=== PATIENT | female | born 1980 | race American Indian/Alaskan Native ===

== ENCOUNTER 2016-11-01 19:23 | Emergency (ER) | payer MEDICAID, OTHER ==
[2016-11-01 20:40] VITALS: BP 131/74
[2016-11-01 21:22] LABS: Eosinophils % (Auto) 2.3 % (0.0-4.3); Hematocrit 34.6 % (30.3-42.9); Hemoglobin 11.3 gm/dl (10.1-14.3); Mean Corpuscular HGB Conc 33 % (30-34); Mean Corpuscular Hemoglobin 29 pg (28-32); Mean Corpuscular Volume 89 fl (79-97); Platelet Count 389 K/mm3 (140-440); Red Blood Count 3.89 M/mm3 (3.65-5.03); White Blood Count 6.7 K/mm3 (4.5-11.0)
[2016-11-01 21:44] LABS: Alanine Aminotransferase 8 units/L (7-56); Albumin 3.9 g/dL (3.9-5); Albumin/Globulin Ratio 1.4 %; Alkaline Phosphatase 81 units/L (35-129); Anion Gap 15 mmol/L; Bilirubin,Total < 0.2 mg/dL (0.1-1.2); Blood Urea Nitrogen 14 mg/dL (7-17); Calcium 9.1 mg/dL (8.4-10.2); Carbon Dioxide 27 mmol/L (22-30); Chloride 100.9 mmol/L (98-107); Glucose 83 mg/dL (65-100); Lipase 27 units/L (13-60); Potassium 4.1 mmol/L (3.6-5.0); Sodium 139 mmol/L (137-145); Total Protein 6.6 g/dL (6.3-8.2)
[2016-11-01 21:48] LABS: Bilirubin,Urine NEG (Negative); Blood,Urine NEG (Negative); Ketones,Urine TR mg/dL (Negative); Leukocyte Esterase,Urine NEG (Negative); Mucus,Urine 3+ /HPF; Nitrite,Urine NEG (Negative); Protein,Urine <15 mg/dL mg/dL (Negative)
--- NOTE | 2016-11-02 07:01 | ED Elopement Review ---
ED Pt Elopement review - Results review Lab results: Laboratory Tests 11/01/16 11/01/16 11/01/16 21:05 21:05 21:28 WBC 6.7 RBC 3.89 Hgb 11.3 Hct 34.6 MCV 89 MCH 29 MCHC 33 RDW 17.0 H Plt Count 389 Lymph % (Auto) 52.6 H [place] % (Auto) 7.3 Eos % (Auto) 2.3 Baso % (Auto) 1.0 Lymph # 3.5 [place] # 0.5 Eos # 0.2 Baso # 0.1 Seg Neutrophils % 36.8 L Seg Neutrophils # 2.5 Sodium 139 Potassium 4.1 Chloride 100.9 Carbon Dioxide 27 Anion Gap 15 BUN 14 Creatinine 0.8 Estimated GFR > 60 BUN/Creatinine Ratio 17.50 Glucose 83 Calcium 9.1 Total Bilirubin < 0.2 AST 15 ALT 8 Alkaline Phosphatase 81 Total Protein 6.6 Albumin 3.9 Albumin/Globulin Ratio 1.4 Lipase 27 Urine Color Yellow Urine Turbidity Clear Urine pH 6.0 Ur Specific [place] 1.025 Urine Protein <15 mg/dl Urine Glucose (UA) Neg Urine Ketones Tr Urine Blood Neg Urine Nitrite Neg Ur Reducing Substances Not Reportable Urine Bilirubin Neg Urine Ictotest Not Reportable Urine Urobilinogen 2.0 Ur Leukocyte Esterase Neg Urine WBC (Auto) 1.0 Urine RBC (Auto) 2.0 U Epithel Cells (Auto) 1.0 Calcium Oxalate Crystal 1+ Urine Mucus 3+ Urine HCG, Qual Negative - Call Back decision Pt Call Back Decision: No action required
== END 2016-11-02 01:30 | disposition left against medical advice (07) ==
LOC: ED 19:23
DX: R10.9 Unspecified abdominal pain (principal); Z53.21 Procedure and treatment not carried out due to patient leaving prior to being seen by health care provider
CPT/HCPCS: 36415; 80053; 81001; 81025; 83690; 85025

== ENCOUNTER 2017-11-23 18:05 | Emergency (ER) | payer OTHER ==
[2017-11-23 18:53] LABS: BUN/Creatinine Ratio 13; Blood Urea Nitrogen 9 mg/dL (7-17); Calcium 8.3 mg/dL (8.4-10.2); Hemolysis Index 19
[2017-11-23 18:54] LABS: Hematocrit 31.4 % (30.3-42.9); Hemoglobin 10.4 gm/dl (10.1-14.3); Mean Corpuscular HGB Conc 33 % (30-34); Mean Corpuscular Hemoglobin 28 pg (28-32); Mean Corpuscular Volume 85 fl (79-97); Platelet Count 379 K/mm3 (140-440); Red Blood Count 3.71 M/mm3 (3.65-5.03); Red Cell Distribution Width 18.3 % (13.2-15.2)
[2017-11-23] MEDS ORDERED: MOTRIN PO ONE (21:43)
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
[2017-11-23 21:52] LABS: Bacteria,Urine 1+ /HPF (Negative); Bilirubin,Urine NEG (Negative); Blood,Urine LG (Negative); Color,Urine Yellow (Yellow); Mucus,Urine 3+ /HPF
[2017-11-23 21:56] LABS: RBC,Urine > 182.0 /HPF (0.0-6.0)
[2017-11-23 22:13] VITALS: BP 115/77
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
== END 2017-11-23 22:02 | disposition home or self-care (01) ==
LOC: ED 18:05
DX: S20.212A Contusion of left front wall of thorax, initial encounter (principal); M54.5 Low back pain; I10 Essential (primary) hypertension; F17.200 Nicotine dependence, unspecified, uncomplicated; Z91.048 Other nonmedicinal substance allergy status; Z88.8 Allergy status to other drugs, medicaments and biological substances; V49.9XXA Car occupant (driver) (passenger) injured in unspecified traffic accident, initial encounter; Y93.89 Activity, other specified; Y92.89 Other specified places as the place of occurrence of the external cause; Y99.8 Other external cause status
CPT/HCPCS: 36415; 71046; 80048; 81001; 84703; 85027; 93005; 93010; 99284

== ENCOUNTER 2018-02-02 15:23 | Emergency (ER) | payer SELFPAY ==
[2018-02-02] MEDS ORDERED: NACL 0.9% 1000 ML 1,000 ML IV ONE (21:25)
--- NOTE | 2018-02-02 21:31 | Emergency Department Report ---
HPI - General Chief Complaint: Abdominal Pain Time Seen by Provider: 02/02/18 21:00 - HPI HPI: 37-year-old female presents to the emergency department with complaint of a few days of generalized abdominal bloating, abdominal cramping, muscle spasms and she complains of constipation for the past 3 weeks. She does have some very small bowel movements but they are not satiating. She has not tried any laxatives, stool softeners or any treatment prior to presentation. No recent travel or sick contacts at home. She denies any past medical history other than hypertension. She does not have a primary care physician. She denies any vaginal bleeding, dysuria, vaginal discharge, fever but does have some nausea with one or 2 episodes of vomiting. ED Past Medical Hx - Past Medical History Previous Medical History?: Yes Hx Hypertension: Yes Hx Congestive Heart Failure: No Hx Diabetes: No Hx Deep Vein Thrombosis: No Hx Renal Disease: No Hx Sickle Cell Disease: No Hx Seizures: No Hx Asthma: No Hx COPD: No Hx HIV: No - Surgical History Past Surgical History?: Yes Additional Surgical History: X 3. hernia repair - Social History Smoking Status: Current Every Day Smoker Substance Use Type: Alcohol, Marijuana - Medications Home Medications: Home Medications Medication Instructions Recorded Confirmed Last Taken Type Pnv95/Ferrous Fumarate/FA 1 each PO QDAY #30 tablet 10/02/14 04/25/15 04/19/15 09:00 Rx [ Vitamins] 1 tab Docusate Sodium [Colace CAP] 100 mg PO BID PRN #60 capsule 04/21/15 04/25/15 Unknown Rx Ibuprofen [Motrin 800 MG tab] 800 mg PO Q8HR PRN #30 tablet 04/21/15 04/25/15 Unknown Rx Lidocain2.5%/Prilocai2.5% [Emla] 5 gm TP ONCE #1 tube 04/21/15 04/25/15 Unknown Rx Cephalexin [Keflex] 500 mg PO Q6HR #28 capsule 04/25/15 Unknown Rx Cyclobenzaprine [Flexeril] 10 mg PO TID PRN #15 tablet 11/23/17 Unknown Rx Ibuprofen 400 mg PO Q6H 4 Days #16 tablet 11/23/17 Unknown Rx oxyCODONE /ACETAMINOPHEN [Percocet 1 tab PO Q6HR PRN #10 tablet 11/23/17 Unknown Rx 5/325] HYDROcodone/APAP 5-325 [[place] 1 each PO Q6HR PRN #16 tablet 02/03/18 Unknown Rx 5/325] ED Review of Systems ROS: Stated complaint: ABD PAINS Other details as noted in HPI Comment: All other systems reviewed and negative Constitutional: denies: chills, fever Eyes: denies: eye pain, eye discharge, vision change ENT: denies: ear pain, throat pain Respiratory: denies: cough, shortness of breath, wheezing Cardiovascular: denies: chest pain, palpitations Gastrointestinal: abdominal pain, nausea, vomiting, constipation Genitourinary: denies: urgency, dysuria, discharge Musculoskeletal: denies: back pain, joint swelling, arthralgia Skin: denies: rash, lesions Neurological: denies: headache, weakness, paresthesias Physical Exam - Physical Exam Vital Signs: Vital Signs 02/02/18 15:42 Temperature 98.6 F Pulse Rate 81 Respiratory 18 Rate Blood Pressure 109/65 O2 Sat by Pulse 98 Oximetry Physical Exam: GENERAL: The patient is well-developed well-nourished. HENT: Normocephalic. Atraumatic. Patient has moist mucous membranes. EYES: Extraocular motions are intact. Pupils equal reactive to light bilaterally. NECK: Supple. Trachea is midline. CHEST/LUNGS: Clear to auscultation. There is no respiratory distress noted. HEART/CARDIOVASCULAR: Regular. There is no tachycardia. There is no murmur. ABDOMEN: Abdomen is soft. There is some lower abdominal and/or pelvic tenderness to palpation. No guarding. Patient has normal bowel sounds. There is no abdominal distention. SKIN: Skin is warm and dry. NEURO: The patient is awake, alert, and oriented. The patient is cooperative. The patient has no focal neurologic deficits. The patient has normal speech. MUSCULOSKELETAL: There is no tenderness or deformity. There is no limitation range of motion. There is no evidence of acute injury. ED Course Vital Signs 02/02/18 15:42 Temperature 98.6 F Pulse Rate 81 Respiratory 18 Rate Blood Pressure 109/65 O2 Sat by Pulse 98 Oximetry - Consultations Consultation #1: I spoke with the [employer] communications project lead, Dr Deann Toth, regarding the patient's presentation, labs, and most importantly the CT and ultrasound results. Dr. Toth ordered some special send out labs to evaluate the patient for ovarian tumor markers. Dr. Toth will be happy to see the patient in her office on Monday. She feels that the ultrasound reading of probable right ovarian blood flow is enough for safe disposition but she reiterates that the patient will need close follow-up. 02/03/18 06:26 ED Medical Decision Making - Lab Data Result diagrams: 02/02/18 21:46 02/02/18 21:46 - Radiology Data Radiology results: report reviewed, image reviewed interpreted by me: Abdominal x-ray shows nonspecific nonobstructive bowel gas. There are a few air -fluid levels. Transvaginal ultrasound/pelvic ultrasound shows a large complex masslike area about the right adnexa, uncertain whether this includes the right ovary. Difficult to evaluate, there is a possible flow about the right adnexa. Could represent complex and/or hemorrhagic cyst. CT scan of the abdomen and pelvis with IV contrast shows an in homogenous density large lesion posterior to the uterus most likely represents an ovarian mass. Differential in diagnoses includes unopacified loops of bowel. Mild degree of ascites. - Medical Decision Making Patient came in originally with concern for possible constipation and some abdominal discomfort. On x-ray she did not appear to have any significant stool burden so I decided to do a CT scan of the abdomen and pelvis with IV contrast. This came back showing a large pelvic mass that appeared right adnexal and possibly ovarian. To further evaluate this, I then ordered a transvaginal ultrasound with Doppler. Once again showed a large right adnexal mass. It was read by radiology as a difficult interpretation of Doppler flow but probable flow to the right ovary. For this reason I wanted to make sure to speak with the [employer] service. They are aware of this reading and feel that the patient can be discharged home from the ER today but she will need very close follow-up and they have agreed to see the patient in the office on Monday. Tumor markers have been ordered and sent out. The patient has been given all labs and imaging results as well as the plan for follow-up on Monday and she understands and agrees to the plan. She will return to the ER with any worsening of her symptoms or any acute distress. - Differential Diagnosis malignancy, ovarian cyst, constipation, colitis Critical Care Time: No Critical care attestation.: If time is entered above; I have spent that time in minutes in the direct care of this critically ill patient, excluding procedure time. ED Disposition Clinical Impression: Adnexal mass, Pelvic mass Disposition: TO HOME OR SELFCARE Is pt being admited?: No Condition: Stable Additional Instructions: You were seen today and found to have a large right adnexal/pelvic mass. Please follow-up with Dr. Toth on Monday for the results of the extra lab tests that were drawn and for further evaluation. Return to the emergency department with any worsening of your symptoms or any acute distress. You have been prescribed a medication that is sedating and therefore should not be taken prior to driving, working, and responsible for children and in no way should be mixed with alcohol of any quantity. Prescriptions: HYDROcodone/APAP 5-325 [[place] 5/325] 1 each PO Q6HR PRN #16 tablet PRN Reason: Pain Referrals: DEANN TOTH MD [Staff Physician] - 02/06/18 Forms: Work/School Release Form(ED) Time of Disposition: 06:21
[2018-02-02 21:58] LABS: Basophils % (Auto) 0.4 % (0.0-1.8); Eosinophils # (Auto) 0.1 K/mm3 (0.0-0.4); Eosinophils % (Auto) 1.6 % (0.0-4.3); Hematocrit 29.4 % (30.3-42.9); Hemoglobin 9.5 gm/dl (10.1-14.3); Lymphocytes # (Auto) 2.4 K/mm3 (1.2-5.4); Lymphocytes % (Auto) 35.6 % (13.4-35.0); Mean Corpuscular HGB Conc 32 % (30-34); Mean Corpuscular Hemoglobin 27 pg (28-32); Mean Corpuscular Volume 83 fl (79-97); Monocytes # (Auto) 0.5 K/mm3 (0.0-0.8); Monocytes % (Auto) 6.8 % (0.0-7.3); Platelet Count 455 K/mm3 (140-440); Red Blood Count 3.56 M/mm3 (3.65-5.03)
[2018-02-02 22:07] LABS: Bilirubin,Urine NEG (Negative); Blood,Urine NEG (Negative); Color,Urine Yellow (Yellow); Mucus,Urine 3+ /HPF; Protein,Urine <15 mg/dL mg/dL (Negative)
[2018-02-02 22:11] LABS: Alanine Aminotransferase 7 units/L (7-56); Albumin 4.1 g/dL (3.9-5); BUN/Creatinine Ratio 13; Blood Urea Nitrogen 8 mg/dL (7-17); Calcium 8.8 mg/dL (8.4-10.2); Hemolysis Index 5; Lipase 29 units/L (13-60)
--- NOTE | 2018-02-03 00:17 | Cat Scan Report ---
FINAL REPORT PROCEDURE: CT ABDOMEN PELVIS WO CON TECHNIQUE: Computerized axial tomography of the abdomen and pelvis was performed without intravenous contrast. This study is performed without intravascular contrast material and its sensitivity for abdominal and pelvic pathology, including neoplasms, inflammation, abscess, free fluid, thrombosis, arterial dissection and infarction, is reduced compared with a contrast enhanced study. HISTORY: abd pain COMPARISON: No prior studies are available for comparison. FINDINGS: Liver, spleen, pancreas and adrenal glands are within normal limits. Bilateral kidneys demonstrate normal density without calculi or hydronephrosis. Urinary bladder is partially filled with normal outlines. Aorta is of normal caliber. There is no free air in the peritoneal cavity. Gallbladder is unremarkable. Small bowel loops are within normal limits. A large inhomogeneous density lesion is identified in the pelvis posterior to the uterus measuring about 11.5 x 6.1 x 9.2 centimeters. Uterus appears displaced anteriorly. There is mild degree of free fluid in the peritoneal cavity. Appendix is normal. IMPRESSION: An inhomogeneous density large lesion posterior to the uterus most likely represents an ovarian mass. Differential diagnosis includes unopacified loops of bowel. A post contrast CT is recommended for further evaluation. Mild degree ascites.
--- NOTE | 2018-02-03 00:17 | XRay Report ---
FINAL REPORT PROCEDURE: XR ABDOMEN 2V TECHNIQUE: Abdominal series, including supine and upright AP views. HISTORY: Abd pain COMPARISON: No prior studies are available for comparison. FINDINGS: Bowel gas pattern:Intestinal gas is distributed in nondistended small and large bowel loops peer. Masses or calcifications:Homogeneous density is noted in pelvis with absence of intestinal gas.. Bony structures:No significant abnormality . Pneumoperitoneum:None . Other:No significant findings . IMPRESSION: Nonspecific intestinal gas pattern. A pelvic mass cannot be excluded. Ultrasound or CT scan are recommended..
[2018-02-03 06:01] VITALS: BP 124/78
--- NOTE | 2018-02-03 09:00 | Ultrasound Report ---
FINAL REPORT PROCEDURE: US PELVIS TECHNIQUE: Real-time transabdominal sonography in multiple planes of the pelvis was performed. The pelvic structures, especially the ovaries were not optimally visualized. Transvaginal sonography was then performed to better evaluate the structures and/or abnormalities described below with image documentation. Limited Doppler evaluation of the ovary/adnexa. CPT 04204 and 33122 HISTORY: Ovarian mass. Pelvic pain. COMPARISON: No prior studies are available for comparison. FINDINGS: UTERUS Size: 10.6 x 4.5 x 6.7 cm. Endometrial thickness: 8.1 mm. Orientation: anteverted. Cervix: Normal. Fibroids/masses: None. RIGHT Ovary: Uncertain whether represents the right ovary or mass, large complex 9.7 x 6.5 x 9.2 cm lesion in this region. Appearance: Difficult to evaluate, but there is probable flow about the right adnexa. LEFT Ovary: 4.6 x 4.2 x 3.3 cm. Appearance: Normal flow. Pelvic fluid: Small amount of fluid in the cul-de-sac. Other: None. IMPRESSION: Large complex masslike area about the right adnexa, uncertain whether this includes the right ovary. Difficult to evaluate, there is possible flow about the right adnexa. Could represent complex and/or hemorrhagic cyst. Consider further evaluation including contrasted CT scan of the abdomen and pelvis or MRI if there is concern for mass lesion (and if patient has no contraindication MRI).
--- NOTE | 2018-02-03 09:00 | Ultrasound Report ---
FINAL REPORT PROCEDURE: US PELVIS TECHNIQUE: Real-time transabdominal sonography in multiple planes of the pelvis was performed. The pelvic structures, especially the ovaries were not optimally visualized. Transvaginal sonography was then performed to better evaluate the structures and/or abnormalities described below with image documentation. Limited Doppler evaluation of the ovary/adnexa. CPT 54752 and 23416 HISTORY: Ovarian mass. Pelvic pain. COMPARISON: CT scan of the abdomen and pelvis dated 02/02/2018. FINDINGS: UTERUS Size: 10.6 x 4.5 x 6.7 cm. Endometrial thickness: 8.1 mm. Orientation: anteverted. Cervix: Normal. Fibroids/masses: None. RIGHT Ovary: Uncertain whether represents the right ovary or mass, large complex 9.7 x 6.5 x 9.2 cm lesion in this region. Appearance: Difficult to evaluate, but there is probable flow about the right adnexa. LEFT Ovary: 4.6 x 4.2 x 3.3 cm. Appearance: Normal flow. Pelvic fluid: Small amount of fluid in the cul-de-sac. Other: None. IMPRESSION: Large complex masslike area about the right adnexa, uncertain whether this includes the right ovary. Difficult to evaluate, there is possible flow about the right adnexa. Could represent complex and/or hemorrhagic cyst. Consider further evaluation including contrasted CT scan of the abdomen and pelvis or MRI if there is concern for mass lesion (and if patient has no contraindication MRI).
== END 2018-02-03 06:48 | disposition home or self-care (01) ==
LOC: ED 15:23
DX: R19.00 Intra-abdominal and pelvic swelling, mass and lump, unspecified site (principal); I10 Essential (primary) hypertension; F17.200 Nicotine dependence, unspecified, uncomplicated; F12.10 Cannabis abuse, uncomplicated
CPT/HCPCS: 36415; 74019; 74176; 76830; 80053; 81001; 82378; 83690; 84703; 85025; 86301; 86304; 93975

== ENCOUNTER 2018-03-28 14:19 | Emergency (ER) | payer SELFPAY ==
[2018-03-28] MEDS ORDERED: NACL 0.9% 1000 ML 1,000 ML IV ONE (14:37)
[2018-03-28 15:25] LABS: Basophils % (Auto) 0.6 % (0.0-1.8); Eosinophils # (Auto) 0.1 K/mm3 (0.0-0.4); Eosinophils % (Auto) 1.7 % (0.0-4.3); Hematocrit 27.2 % (30.3-42.9); Hemoglobin 8.9 gm/dl (10.1-14.3); Lymphocytes # (Auto) 1.4 K/mm3 (1.2-5.4); Lymphocytes % (Auto) 25.8 % (13.4-35.0); Mean Corpuscular HGB Conc 33 % (30-34); Mean Corpuscular Hemoglobin 26 pg (28-32); Mean Corpuscular Volume 81 fl (79-97); Monocytes # (Auto) 0.4 K/mm3 (0.0-0.8); Monocytes % (Auto) 7.9 % (0.0-7.3); Platelet Count 578 K/mm3 (140-440); Red Blood Count 3.37 M/mm3 (3.65-5.03); Red Cell Distribution Width 18.5 % (13.2-15.2)
[2018-03-28 15:32] LABS: Alanine Aminotransferase 6 units/L (7-56); Albumin 4.4 g/dL (3.9-5); BUN/Creatinine Ratio 15; Blood Urea Nitrogen 9 mg/dL (7-17); Calcium 9.8 mg/dL (8.4-10.2); Hemolysis Index 3
[2018-03-28] MEDS ORDERED: DILAUDID IV ONE (17:30)
[2018-03-28] MEDS ORDERED: ZOFRAN IV ONE (17:31)
--- NOTE | 2018-03-28 17:32 | Emergency Department Report ---
ED Abdominal Pain HPI - General Chief Complaint: Abdominal Pain Stated Complaint: RT OVARIAN CYST Time Seen by Provider: 03/28/18 17:19 Source: patient, RN notes reviewed, old records reviewed Mode of arrival: Ambulatory Limitations: No Limitations - History of Present Illness Initial Comments: This is a 37-year-old female who is unknown to this provider previously. She is currently seeing jet ski mechanic, Dr. Donal Arias. Patient has had imaging at this hospital in the past few months including CAT scan of the abdomen and pelvis as well as pelvic ultrasound, both of which suggested a probable right- sided ovarian mass. Patient is supposed to have follow-up with outpatient gynecology for right-sided oophorectomy, possible cystectomy, for presumed malignant ovarian lesion. Patient has been having issues following up secondary to financial issues. Patient was seen by financial director today prior to my evaluation, and they informed nursing staff and patient that she has qualified for emergency Medicaid. The patient presents today with acute on chronic abdominal pain. The abdominal pain is in the bilateral lower quadrants it is sharp and burning in nature, increases with palpation and decreases with rest. She endorses constipation which improves with magnesium sulfate. She had a bowel movement yesterday. She 's not had a bowel movement today. She denies urinary symptoms. SHe also reports feeling like the skin in her lower abdominal region feels "hard." MD Complaint: abdominal pain -: Gradual Location: LLQ, RLQ, suprapubic Radiation: none Severity: moderate Quality: cramping Consistency: constant (for weeks) Improves With: bowel movement, medication, rest Worsens With: movement Associated Symptoms: nausea, vomiting, constipation. denies: diarrhea, fever, chills, dysuria, hematemesis, hematochezia, melena, hematuria, anorexia, syncope - Related Data Previous Rx's Medication Instructions Recorded Last Taken Type Pnv95/Ferrous Fumarate/FA 1 each PO QDAY #30 tablet 10/02/14 04/19/15 09:00 Rx [ Vitamins] 1 tab Docusate Sodium [Colace CAP] 100 mg PO BID PRN #60 capsule 04/21/15 Unknown Rx Ibuprofen [Motrin 800 MG tab] 800 mg PO Q8HR PRN #30 tablet 04/21/15 Unknown Rx Lidocain2.5%/Prilocai2.5% [Emla] 5 gm TP ONCE #1 tube 04/21/15 Unknown Rx Cephalexin [Keflex] 500 mg PO Q6HR #28 capsule 04/25/15 Unknown Rx Cyclobenzaprine [Flexeril] 10 mg PO TID PRN #15 tablet 11/23/17 Unknown Rx Ibuprofen 400 mg PO Q6H 4 Days #16 tablet 11/23/17 Unknown Rx oxyCODONE /ACETAMINOPHEN [Percocet 1 tab PO Q6HR PRN #10 tablet 11/23/17 Unknown Rx 5/325] HYDROcodone/APAP 5-325 [[place] 1 each PO Q6HR PRN #16 tablet 02/03/18 Unknown Rx 5/325] Acetaminophen [Tylenol Arthritis] 650 mg PO Q6HR PRN #30 tablet.er 03/28/18 Unknown Rx Ibuprofen [Motrin] 600 mg PO Q8H PRN #30 tablet 03/28/18 Unknown Rx Ondansetron [Zofran Odt] 4 mg PO Q8HR PRN #20 tab.rapdis 03/28/18 Unknown Rx oxyCODONE [Roxicodone] 5 mg PO Q6HR PRN #15 tablet 03/28/18 Unknown Rx Allergies Allergy/AdvReac Type Severity Reaction Status Date / Time povidone-iodine Allergy Swelling Verified 10/02/14 13:56 [From Betadine] soap [From Betadine] Allergy Swelling Verified 10/02/14 13:56 ED Review of Systems ROS: Stated complaint: RT OVARIAN CYST Other details as noted in HPI Comment: All other systems reviewed and negative Constitutional: denies: fever Eyes: denies: eye discharge ENT: denies: epistaxis Respiratory: denies: cough Cardiovascular: denies: chest pain Gastrointestinal: abdominal pain, nausea, vomiting, constipation Genitourinary: denies: dysuria Neurological: weakness ED Past Medical Hx - Past Medical History Previous Medical History?: Yes Hx Hypertension: Yes Hx Congestive Heart Failure: No Hx Diabetes: No Hx Deep Vein Thrombosis: No Hx Renal Disease: No Hx Sickle Cell Disease: No Hx Seizures: No Hx Asthma: No Hx COPD: No Hx HIV: No - Surgical History Past Surgical History?: Yes Additional Surgical History: X 3. hernia repair - Social History Smoking Status: Never Smoker Substance Use Type: Marijuana - Medications Home Medications: Home Medications Medication Instructions Recorded Confirmed Last Taken Type Pnv95/Ferrous Fumarate/FA 1 each PO QDAY #30 tablet 10/02/14 04/25/15 04/19/15 09:00 Rx [ Vitamins] 1 tab Docusate Sodium [Colace CAP] 100 mg PO BID PRN #60 capsule 04/21/15 04/25/15 Unknown Rx Ibuprofen [Motrin 800 MG tab] 800 mg PO Q8HR PRN #30 tablet 04/21/15 04/25/15 Unknown Rx Lidocain2.5%/Prilocai2.5% [Emla] 5 gm TP ONCE #1 tube 04/21/15 04/25/15 Unknown Rx Cephalexin [Keflex] 500 mg PO Q6HR #28 capsule 04/25/15 Unknown Rx Cyclobenzaprine [Flexeril] 10 mg PO TID PRN #15 tablet 11/23/17 Unknown Rx Ibuprofen 400 mg PO Q6H 4 Days #16 tablet 11/23/17 Unknown Rx oxyCODONE /ACETAMINOPHEN [Percocet 1 tab PO Q6HR PRN #10 tablet 11/23/17 Unknown Rx 5/325] HYDROcodone/APAP 5-325 [[place] 1 each PO Q6HR PRN #16 tablet 02/03/18 Unknown Rx 5/325] Acetaminophen [Tylenol Arthritis] 650 mg PO Q6HR PRN #30 tablet.er 03/28/18 Unknown Rx Ibuprofen [Motrin] 600 mg PO Q8H PRN #30 tablet 03/28/18 Unknown Rx Ondansetron [Zofran Odt] 4 mg PO Q8HR PRN #20 tab.rapdis 03/28/18 Unknown Rx oxyCODONE [Roxicodone] 5 mg PO Q6HR PRN #15 tablet 03/28/18 Unknown Rx ED Physical Exam - General Limitations: No Limitations General appearance: alert, in no apparent distress - Head Head exam: Present: atraumatic, normocephalic - Eye Eye exam: Present: normal appearance, EOMI. Absent: nystagmus - ENT ENT exam: Present: normal exam, normal orophraynx, mucous membranes moist, normal external ear exam - Neck Neck exam: Present: normal inspection, full ROM - Respiratory Respiratory exam: Present: normal lung sounds bilaterally. Absent: respiratory distress - Cardiovascular Cardiovascular Exam: Present: regular rate, normal rhythm, normal heart sounds. Absent: systolic murmur, diastolic murmur, rubs, gallop - GI/Abdominal GI/Abdominal exam: Present: soft, tenderness, other (there is bilateral lower quadrant tenderness, and the skin in the suprapubic region feels firm. There is no redness, pus or streaking. Uterus feels enlarged.). Absent: distended, guarding, rebound, rigid - Extremities Exam Extremities exam: Present: normal inspection, full ROM, normal capillary refill , other (2+ pulses noted in the bilateral upper, lower extremities. Compartments soft. No long bony tenderness. The pelvis is stable.). Absent: pedal edema, joint swelling, calf tenderness - Back Exam Back exam: Present: normal inspection, full ROM. Absent: tenderness, CVA tenderness (R), paraspinal tenderness, vertebral tenderness - Neurological Exam Neurological exam: Present: alert, oriented X3, CN II-XII intact, normal gait, other (Extraocular movements intact. Tongue midline. No facial droop. Facial sensation intact to light touch in the V1, V2, V3 distribution bilaterally. 5 and 5 strength in 4 extremities.. Sensation is intact to light touch in 4 extremities.). Absent: motor sensory deficit - Psychiatric Psychiatric exam: Present: normal affect, normal mood - Skin Skin exam: Present: warm, dry, intact, normal color. Absent: rash ED Course Vital Signs 03/28/18 03/28/18 03/28/18 14:29 17:37 20:00 Temperature 99.2 F Pulse Rate 98 H 88 86 Respiratory 18 18 18 Rate Blood Pressure 122/65 Blood Pressure 118/68 [Right] O2 Sat by Pulse 100 98 100 Oximetry 03/28/18 20:04 Temperature Pulse Rate Respiratory Rate Blood Pressure 113/79 Blood Pressure [Right] O2 Sat by Pulse Oximetry - Reevaluation(s) Reevaluation #1: 03/28/18 19:19 Differential diagnosis, including but not limited to: Metastatic ovarian lesions , cancer, obstruction, torsion Assessment and plan: 37-year-old female with known right-sided ovarian abnormality, suspicious for ovarian neoplasm, complaints of constipation, bilateral lower quadrant tenderness, and firm feeling to suprapubic region. Concern for metastatic spread. Patient's pain will be treated aggressively. Ultrasound and CT scan of the abdomen and pelvis are pending to exclude surgical process. Reevaluation #2: 03/28/18 20:44 IMPRESSION: ABDOMEN: LIVER METASTASES INCREASED IN SIZE AND NUMBER FROM PRIOR EXAM SMALL AMOUNT OF ASCITES, INCREASED PELVIS: MIXED SOLID AND CYSTIC MASS OF PELVIS AND LOWER ABDOMEN LIKELY OF OVARIAN ORIGIN, INCREASED IN SIZE FROM PRIOR CT EXAMINATION FEBRUARY 02, 2018 CT scan shows the following pertinent findings. I have placed a page out to the patient's jet ski mechanic, Dr. Arias to discuss. Reevaluation #3: 03/28/18 21:04 CT scan shows worsening gynecologic malignancy. Case is discussed with Dr. Arias, who indicates he will see the patient tomorrow at 2:00 PM. He further indicates she has a gynecologic oncologist, Dr. Kody Arambula that he intends to refer the patient to. Patient is instructed on the importance of outpatient follow-up to arrange therapy. ED Medical Decision Making - Lab Data Result diagrams: 03/28/18 15:04 03/28/18 15:04 Vital Signs 03/28/18 03/28/18 14:29 17:37 Temperature 99.2 F Pulse Rate 98 H 88 Respiratory 18 18 Rate Blood Pressure 122/65 Blood Pressure 118/68 [Right] O2 Sat by Pulse 100 98 Oximetry Lab Results 03/28/18 03/28/18 03/28/18 Range/Units 15:04 15:04 15:04 WBC 5.6 (4.5-11.0) K/mm3 RBC 3.37 L (3.65-5.03) M/mm3 Hgb 8.9 L (10.1-14.3) gm/dl Hct 27.2 L (30.3-42.9) % MCV 81 (79-97) fl MCH 26 L (28-32) pg MCHC 33 (30-34) % RDW 18.5 H (13.2-15.2) % Plt Count 578 H (140-440) K/mm3 Lymph % (Auto) 25.8 (13.4-35.0) % [place] % (Auto) 7.9 H (0.0-7.3) % Eos % (Auto) 1.7 (0.0-4.3) % Baso % (Auto) 0.6 (0.0-1.8) % Lymph # 1.4 (1.2-5.4) K/mm3 [place] # 0.4 (0.0-0.8) K/mm3 Eos # 0.1 (0.0-0.4) K/mm3 Baso # 0.0 (0.0-0.1) K/mm3 Seg Neutrophils % 64.0 (40.0-70.0) % Seg Neutrophils # 3.6 (1.8-7.7) K/mm3 Sodium 137 (137-145) mmol/L Potassium 3.9 (3.6-5.0) mmol/L Chloride 99.8 (98-107) mmol/L Carbon Dioxide 26 (22-30) mmol/L Anion Gap 15 mmol/L BUN 9 (7-17) mg/dL Creatinine 0.6 L (0.7-1.2) mg/dL Estimated GFR > 60 ml/min BUN/Creatinine Ratio 15 % Glucose 91 (65-100) mg/dL Calcium 9.8 (8.4-10.2) mg/dL Total Bilirubin 0.20 (0.1-1.2) mg/dL AST 38 (5-40) units/L ALT 6 L (7-56) units/L Alkaline Phosphatase 98 (35-129) units/L Total Protein 7.6 (6.3-8.2) g/dL Albumin 4.4 (3.9-5) g/dL Albumin/Globulin Ratio 1.4 % HCG, Qual Negative (Negative) - Radiology Data Radiology results: report reviewed, image reviewed Print Report Referring Physician: SOFI HOPKINS Patient Name: JASON BALDERAS Date of : 1980 Sex: Female Report Date: 2018-03-28 Report Status: [place] [address] Ultrasound Report Signed Patient: JASON BALDERAS MR#: [id number] : 1980 Acct:[id number] Age/Sex: 37 / F ADM Date: 03/28/18 Loc: ED Attending Dr: Ordering Physician: SOFI HOPKINS MD Date of Service: 03/28/18 Procedure(s): US pelvis duplex doppler comp Accession Number(s): [id number] cc: SOFI HOPKINS MD FINAL REPORT PROCEDURE: US PELVIS DUPLEX DOPPLER COMP TECHNIQUE: Real-time transabdominal sonography in multiple planes of pelvis was performed with image documentation. This examination was performed without Doppler. Vascular abnormalities, including ovarian torsion, will not be detectable without Doppler evaluation. CPT 79932 HISTORY: pelvic pain COMPARISON: No prior studies are available for comparison. FINDINGS: Large mixed cystic/solid mass lesions are noted in bilateral adnexal regions as seen on today's CT abdomen. The exact sizes of these masses cannot be determined. Right adnexal mass appears to be 7.4 x 4.0 x 6.2 centimeters and left adnexal mass appears to be 6.8 x 5.5 x 6.5 centimeters. Minimal free fluid is noted in the pelvic cavity. Uterus is anteverted and measures 12 x 4 x 6 centimeters with an endometrial thickness of 7 millimeters. IMPRESSION: Findings are most consistent with the cystic/solid mixed mass lesions in bilateral adnexal regions most likely representing neoplasms of ovarian origin. Transcribed By: [facility] [place] Dictated By: JING BOWSER Electronically Authenticated By: JING BOWSER Signed Date/Time: 03/28/18 2017 Print Report Referring Physician: SOFI HOPKINS Patient Name: JASON BALDERAS Date of : 1980 Sex: Female Report Date: 2018-03-28 Report Status: [place] [address] Cat Scan Report Signed Patient: JASON BALDERAS MR#: [id number] : 1980 Acct:[id number] Age/Sex: 37 / F ADM Date: 03/28/18 Loc: ED Attending Dr: Ordering Physician: SOFI HOPKINS MD Date of Service: 03/28/18 Procedure(s): CT abdomen pelvis w con Accession Number(s): [id number] cc: SOFI HOPKINS MD FINAL REPORT EXAM: CT A/P w Contrast CLINICAL INDICATIONS: Abdomen Pain FINDINGS: CT of the abdomen and pelvis was performed following the intravenous administration of iodinated contrast. Comparison is made with prior enhanced examination of February 02, 2018. The heart is normal in size. The lung bases appear clear. The prior examination is limited by lack of intravenous contrast. Abdomen: There are multiple hepatic lesions which are likely metastases. Lesion in the lateral segment left lobe of liver measures approximately 1.3 x 1.3 cm and previously measured approximately 0.9 x 0.9 cm. Lesion in the posterior segment right lobe of liver, image 36 currently measures 2.4 x 2.3 cm and previously measured 1.5 x 2.0 cm. Lesion in the posterior segment right lobe of liver, image 40 of the current exam appears new and measures 2.7 x 2.4 cm. Other lesions are also present. The spleen is normal in size. The adrenal glands, pancreas and gallbladder are unremarkable. There is no renal or ureteral calculus. There is no small or large bowel obstruction. There is ascites, which appears slightly increased from the prior exam. Pelvis: There is a large mixed solid and cystic tumor occupying the central pelvis and lower abdomen, axial image 113, sagittal image 108, currently approximately 9.4 x 16.2 x 16.7 cm. This wasnot as well-defined on the prior examination, which was without intravenous contrast, but the tumor is clearly larger, previously estimated at approximately 6.1 x 8.6 x 13.2 cm when measured in similar fashion. This is likely tumor of ovarian origin. The urinary bladder is collapsed but is otherwise unremarkable. IMPRESSION: ABDOMEN: LIVER METASTASES INCREASED IN SIZE AND NUMBER FROM PRIOR EXAM SMALL AMOUNT OF ASCITES, INCREASED PELVIS: MIXED SOLID AND CYSTIC MASS OF PELVIS AND LOWER ABDOMEN LIKELY OF OVARIAN ORIGIN, INCREASED IN SIZE FROM PRIOR CT EXAMINATION FEBRUARY 02, 2018 Transcribed By: KYARA Dictated By: SAY ESTRADA MD Electronically Authenticated By: SAY ESTRADA MD Signed Date/Time: 03/28/182009 Critical care attestation.: If time is entered above; I have spent that time in minutes in the direct care of this critically ill patient, excluding procedure time. ED Disposition Clinical Impression: Ovarian mass Disposition: DC-01 TO HOME OR SELFCARE Is pt being admited?: No Does the pt Need Aspirin: No Condition: Stable Instructions: Abdominal Pain (ED) Additional Instructions: Take the pain medication, nausea medication as needed/directed. Drink 6-8 cups of water per day. I have discussed her case with her private jet ski mechanic, Dr. Silverio Arias, he would like to see you tomorrow at 2 o'clock p.m. It is very important to closely follow up with him as directed as imaging studies today have indicated worsening spread of probable ovarian cancer, including liver involvement. Therefore, not following up as recommended may result in worsening cancer, worsened pain, worsening quality of life. In addition, Dr. Arias has indicated that he would like you to follow-up with Dr. Kody Arambula, a gynecologic oncologist. He indicates that he will refer you to Dr. Arambula, but for the patient's convenience, his contact information has been listed as follows. Please return to the ER right away with new pain, worsened pain, migration of pain, fevers, chills, lethargy, irritability, projectile vomiting, change in mental status, confusion, inability to tolerate liquid feeds. [facility] [address] [place] [address] [facility] [address] [place] [address] [facility] [address] [place] [address] [address] [place] [address] Prescriptions: Acetaminophen [Tylenol Arthritis] 650 mg PO Q6HR PRN #30 tablet.er PRN Reason: Pain Ibuprofen [Motrin] 600 mg PO Q8H PRN #30 tablet PRN Reason: Pain Ondansetron [Zofran Odt] 4 mg PO Q8HR PRN #20 tab.rapdis PRN Reason: Nausea oxyCODONE [Roxicodone] 5 mg PO Q6HR PRN #15 tablet PRN Reason: Pain Referrals: PRIMARY CAREMD [Primary Care Provider] - 3-5 Days DONAL ARIAS MD [Staff Physician] - 3-5 Days
--- NOTE | 2018-03-28 20:14 | Cat Scan Report ---
FINAL REPORT EXAM: CT A/P w Contrast CLINICAL INDICATIONS: Abdomen Pain FINDINGS: CT of the abdomen and pelvis was performed following the intravenous administration of iodinated contrast. Comparison is made with prior enhanced examination of February 02, 2018. The heart is normal in size. The lung bases appear clear. The prior examination is limited by lack of intravenous contrast. Abdomen: There are multiple hepatic lesions which are likely metastases. Lesion in the lateral segment left lobe of liver measures approximately 1.3 x 1.3 cm and previously measured approximately 0.9 x 0.9 cm. Lesion in the posterior segment right lobe of liver, image 36 currently measures 2.4 x 2.3 cm and previously measured 1.5 x 2.0 cm. Lesion in the posterior segment right lobe of liver, image 40 of the current exam appears new and measures 2.7 x 2.4 cm. Other lesions are also present. The spleen is normal in size. The adrenal glands, pancreas and gallbladder are unremarkable. There is no renal or ureteral calculus. There is no small or large bowel obstruction. There is ascites, which appears slightly increased from the prior exam. Pelvis: There is a large mixed solid and cystic tumor occupying the central pelvis and lower abdomen, axial image 113, sagittal image 108, currently approximately 9.4 x 16.2 x 16.7 cm. This wasnot as well-defined on the prior examination, which was without intravenous contrast, but the tumor is clearly larger, previously estimated at approximately 6.1 x 8.6 x 13.2 cm when measured in similar fashion. This is likely tumor of ovarian origin. The urinary bladder is collapsed but is otherwise unremarkable. IMPRESSION: ABDOMEN: LIVER METASTASES INCREASED IN SIZE AND NUMBER FROM PRIOR EXAM SMALL AMOUNT OF ASCITES, INCREASED PELVIS: MIXED SOLID AND CYSTIC MASS OF PELVIS AND LOWER ABDOMEN LIKELY OF OVARIAN ORIGIN, INCREASED IN SIZE FROM PRIOR CT EXAMINATION FEBRUARY 02, 2018
--- NOTE | 2018-03-28 20:22 | Ultrasound Report ---
FINAL REPORT PROCEDURE: US PELVIS DUPLEX DOPPLER COMP TECHNIQUE: Real-time transabdominal sonography in multiple planes of pelvis was performed with image documentation. This examination was performed without Doppler. Vascular abnormalities, including ovarian torsion, will not be detectable without Doppler evaluation. CPT 37130 HISTORY: pelvic pain COMPARISON: No prior studies are available for comparison. FINDINGS: Large mixed cystic/solid mass lesions are noted in bilateral adnexal regions as seen on today's CT abdomen. The exact sizes of these masses cannot be determined. Right adnexal mass appears to be 7.4 x 4.0 x 6.2 centimeters and left adnexal mass appears to be 6.8 x 5.5 x 6.5 centimeters. Minimal free fluid is noted in the pelvic cavity. Uterus is anteverted and measures 12 x 4 x 6 centimeters with an endometrial thickness of 7 millimeters. IMPRESSION: Findings are most consistent with the cystic/solid mixed mass lesions in bilateral adnexal regions most likely representing neoplasms of ovarian origin.
[2018-03-28 20:24] LABS: Bilirubin,Urine NEG (Negative); Blood,Urine NEG (Negative); Color,Urine Yellow (Yellow); Protein,Urine <15 mg/dL mg/dL (Negative); Urobilinogen,Urine < 2.0 mg/dL (<2.0)
--- NOTE | 2018-03-28 20:31 | Ultrasound Report ---
FINAL REPORT PROCEDURE: US TRANSVAGINAL TECHNIQUE: Real-time transvaginal sonography in multiple planes of the pelvis was performed with image documentation. This examination was performed without Doppler. Vascular abnormalities, including ovarian torsion, will not be detectable without Doppler evaluation. CPT 17000 HISTORY: pelvic pain COMPARISON: No prior studies are available for comparison. FINDINGS: Large mixed cystic/solid mass lesions are noted in bilateral adnexal regions as seen on today's CT abdomen. The exact sizes of these masses cannot be determined. Right adnexal mass appears to be 7.4 x 4.0 x 6.2 centimeters and left adnexal mass appears to be 6.8 x 5.5 x 6.5 centimeters. Minimal free fluid is noted in the pelvic cavity. Uterus is anteverted and measures 12 x 4 x 6 centimeters with an endometrial thickness of 7 millimeters. IMPRESSION: Findings are most consistent with the cystic/solid mixed mass lesions in bilateral adnexal regions most likely representing neoplasms of ovarian origin.
[2018-03-28 21:26] VITALS: BP 121/85
== END 2018-03-28 21:27 | disposition home or self-care (01) ==
LOC: ED 14:19
DX: N83.8 Other noninflammatory disorders of ovary, fallopian tube and broad ligament (principal); I10 Essential (primary) hypertension; F12.10 Cannabis abuse, uncomplicated; Z91.041 Radiographic dye allergy status; Z91.09 Other allergy status, other than to drugs and biological substances
CPT/HCPCS: 36415; 74177; 76830; 80053; 81001; 84703; 85025; 93975; 96361; 96374; 96375; 99284; J1170; J2405; J7030; Q9967

== ENCOUNTER 2018-04-12 11:06 | Emergency (ER) | payer MEDICAID ==
[2018-04-12 11:46] LABS: Amorphous Crystals,Urine 2+; Bacteria,Urine 2+ /HPF (Negative); Bilirubin,Urine NEG (Negative); Blood,Urine NEG (Negative); Mucus,Urine FEW /HPF; Protein,Urine <15 mg/dL mg/dL (Negative)
[2018-04-12 11:47] LABS: Color,Urine Straw (Yellow); HCG Qualitative,Urine Negative (Negative)
[2018-04-12 11:52] LABS: Basophils % (Auto) 0.6 % (0.0-1.8); Eosinophils # (Auto) 0.1 K/mm3 (0.0-0.4); Eosinophils % (Auto) 1.1 % (0.0-4.3); Hematocrit 25.4 % (30.3-42.9); Hemoglobin 8.5 gm/dl (10.1-14.3); Lymphocytes # (Auto) 1.9 K/mm3 (1.2-5.4); Lymphocytes % (Auto) 26.8 % (13.4-35.0); Mean Corpuscular HGB Conc 34 % (30-34); Mean Corpuscular Hemoglobin 26 pg (28-32); Mean Corpuscular Volume 78 fl (79-97); Monocytes # (Auto) 0.3 K/mm3 (0.0-0.8); Monocytes % (Auto) 4.8 % (0.0-7.3); Platelet Count 574 K/mm3 (140-440); Red Blood Count 3.26 M/mm3 (3.65-5.03); Red Cell Distribution Width 18.2 % (13.2-15.2)
[2018-04-12] MEDS ORDERED: ZOFRAN IV ONE (12:01)
[2018-04-12] MEDS ORDERED: MORPHINE IV ONE ×2 (12:01→14:52)
--- NOTE | 2018-04-12 12:01 | Emergency Department Report ---
HPI - General Chief Complaint: Abdominal Pain Time Seen by Provider: 04/12/18 11:29 - HPI HPI: 37-year-old female presents to the emergency department with complaint of generalized abdominal swelling and some right-sided abdominal pain. This is an acute on chronic problem for this patient. She has been worked up a few times over the past few months, including 2 visits to [facility], and has been found to have some ovarian masses with concern for malignancy as well as some liver lesions concerning for metastasis. She previously was seeing Dr. Donal Arias, OILER HELPER, but says that she is switched over to the MyOBGYN service. Patient has been trying to treat her discomfort with ibuprofen and oxycodone without much relief. She has some nausea and vomiting but denies any fever. She has not yet seen any oncologist or had any definitive diagnosis of cancer. She also has a history of hypertension, 3 previous C-sections and a hernia repair. No recent travel or sick contacts at home. She denies any fever, dysuria, vaginal bleeding or discharge, shortness of breath, diarrhea or constipation. ED Past Medical Hx - Past Medical History Previous Medical History?: Yes Hx Hypertension: Yes Hx Congestive Heart Failure: No Hx Diabetes: No Hx Deep Vein Thrombosis: No Hx Renal Disease: No Hx Sickle Cell Disease: No Hx Seizures: No Hx Asthma: No Hx COPD: No Hx HIV: No - Surgical History Past Surgical History?: Yes Additional Surgical History: X 3. hernia repair - Social History Smoking Status: Never Smoker - Medications Home Medications: Home Medications Medication Instructions Recorded Confirmed Last Taken Type Pnv95/Ferrous Fumarate/FA 1 each PO QDAY #30 tablet 10/02/14 04/25/15 04/19/15 09:00 Rx [ Vitamins] 1 tab Docusate Sodium [Colace CAP] 100 mg PO BID PRN #60 capsule 04/21/15 04/25/15 Unknown Rx Ibuprofen [Motrin 800 MG tab] 800 mg PO Q8HR PRN #30 tablet 04/21/15 04/25/15 Unknown Rx Lidocain2.5%/Prilocai2.5% [Emla] 5 gm TP ONCE #1 tube 04/21/15 04/25/15 Unknown Rx Cephalexin [Keflex] 500 mg PO Q6HR #28 capsule 04/25/15 Unknown Rx Cyclobenzaprine [Flexeril] 10 mg PO TID PRN #15 tablet 11/23/17 Unknown Rx Ibuprofen 400 mg PO Q6H 4 Days #16 tablet 11/23/17 Unknown Rx oxyCODONE /ACETAMINOPHEN [Percocet 1 tab PO Q6HR PRN #10 tablet 11/23/17 Unknown Rx 5/325] HYDROcodone/APAP 5-325 [[place] 1 each PO Q6HR PRN #16 tablet 02/03/18 Unknown Rx 5/325] Acetaminophen [Tylenol Arthritis] 650 mg PO Q6HR PRN #30 tablet.er 03/28/18 Unknown Rx Ibuprofen [Motrin] 600 mg PO Q8H PRN #30 tablet 03/28/18 Unknown Rx Ondansetron [Zofran Odt] 4 mg PO Q8HR PRN #20 tab.rapdis 03/28/18 Unknown Rx oxyCODONE [Roxicodone] 5 mg PO Q6HR PRN #15 tablet 03/28/18 Unknown Rx ED Review of Systems ROS: Stated complaint: RT SIDE PAIN Other details as noted in HPI Comment: All other systems reviewed and negative Constitutional: denies: chills, fever Eyes: denies: eye pain, eye discharge, vision change ENT: denies: ear pain, throat pain Respiratory: denies: cough, shortness of breath, wheezing Cardiovascular: denies: chest pain, palpitations Gastrointestinal: abdominal pain, nausea, vomiting Genitourinary: denies: urgency, dysuria, discharge Musculoskeletal: denies: back pain, joint swelling, arthralgia Skin: denies: rash, lesions Neurological: denies: headache, weakness, paresthesias Physical Exam - Physical Exam Vital Signs: Vital Signs 04/12/18 11:13 Temperature 98.6 F Pulse Rate 98 H Respiratory 18 Rate Blood Pressure 135/91 O2 Sat by Pulse 100 Oximetry ED Course Vital Signs 04/12/18 11:13 Temperature 98.6 F Pulse Rate 98 H Respiratory 18 Rate Blood Pressure 135/91 O2 Sat by Pulse 100 Oximetry ED Medical Decision Making - Lab Data Result diagrams: 04/12/18 11:42 04/12/18 11:42 Critical care attestation.: If time is entered above; I have spent that time in minutes in the direct care of this critically ill patient, excluding procedure time. ED Disposition Clinical Impression: Liver masses, Ovarian mass, Abdominal pain, Anemia Disposition: - TO HOME OR SELFCARE Is pt being admited?: No Condition: Stable Instructions: Abdominal Pain (ED), Anemia (ED) Additional Instructions: Please follow-up with your OILER HELPER during the appointment that was scheduled for you on Monday at 2:[address] Fowler. Return to the emergency Department with any worsening of your symptoms or any acute distress. Referrals: ROBB FOWLER MD [Staff Physician] - 04/16/18 2:30 pm Time of Disposition: 16:17
[2018-04-12 12:03] LABS: INR 0.89 (0.87-1.13)
[2018-04-12 12:04] LABS: Partial Thromboplastin Time 26.4 Sec. (24.2-36.6)
[2018-04-12 12:09] LABS: Alanine Aminotransferase 8 units/L (7-56); Albumin 3.7 g/dL (3.9-5); BUN/Creatinine Ratio 16; Blood Urea Nitrogen 8 mg/dL (7-17); Calcium 8.9 mg/dL (8.4-10.2); Hemolysis Index 1
--- NOTE | 2018-04-12 13:59 | Ultrasound Report ---
ULTRASOUND ABDOMEN INDICATION: Abdominal pain, ascites, liver metastases. COMPARISON: 03/28/2018 CT. FINDINGS: Abdominal sonography suggests multiple solid hepatic metastases as measuring 3.8 x 3.1 cm in the right hepatic lobe, image 23 and 1.8 x 1.3 cm in the left hepatic lobe as on image 9. Grossly normal hepatic contours without biliary dilatation. Slightly coarse liver. Fluid/ascites again noted in the right hepatorenal space. No gallstones, pericholecystic fluid or positive sonographic Ledesma's sign. Normal gallbladder wall thickness. CBD caliber is 3 mm. Homogenous spleen approximately 7.5 cm in length. Normal imaged pancreas, IVC and abdominal aorta. Slight right collecting system fullness centrally/pelviectasis, more so with upper pole collecting system dilatation as on image 30, somewhat similar or slightly pronounced since the prior CT. Right kidney is 11.7 x 4.2 x 5.4 cm with cortical thickness of 1.3 cm. Non-hydronephrotic left kidney approximately 11.8 x 4.7 x 4.4 cm with cortical thickness of 0.9 cm. CONCLUSION: Slight right hydronephrosis now not entirely excluded sonographically in this patient with multiple hepatic metastases and ascites again seen, as described. Please correlate. Thank you for the opportunity to participate in this patient's care.
[2018-04-12] MEDS ORDERED: ZOFRAN ONE (14:11)
[2018-04-12] MEDS ORDERED: MORPHINE ONE (14:11)
[2018-04-12 17:02] VITALS: BP 141/90
== END 2018-04-12 17:00 | disposition home or self-care (01) ==
LOC: ED 11:06
DX: R10.11 Right upper quadrant pain (principal); D64.9 Anemia, unspecified; K76.89 Other specified diseases of liver; N83.209 Unspecified ovarian cyst, unspecified side; Z88.8 Allergy status to other drugs, medicaments and biological substances
CPT/HCPCS: 36415; 76700; 80053; 81001; 81025; 85025; 85610; 85730; 96374; 96375; 96376; 99284; J2270; J2405

== ENCOUNTER 2018-05-25 08:11 | Inpatient (IN) | payer MEDICAID, OTHER ==
[2018-05-25 09:27] LABS: Alanine Aminotransferase 8 units/L (7-56); Blood Urea Nitrogen 12 mg/dL (7-17)
[2018-05-25 09:34] LABS: BUN/Creatinine Ratio 24; Calcium 9.5 mg/dL (8.4-10.2); Hemolysis Index 4
[2018-05-25 09:36] LABS: Basophils % (Auto) 0.6 % (0.0-1.8); Eosinophils % (Auto) 0.5 % (0.0-4.3); Hematocrit 25.1 % (30.3-42.9); Hemoglobin 8.1 gm/dl (10.1-14.3); Lymphocytes # (Auto) 1.2 K/mm3 (1.2-5.4); Mean Corpuscular HGB Conc 32 % (30-34); Mean Corpuscular Volume 73 fl (79-97); Monocytes # (Auto) 0.4 K/mm3 (0.0-0.8); Monocytes % (Auto) 5.5 % (0.0-7.3); Platelet Count 696 K/mm3 (140-440); Red Blood Count 3.43 M/mm3 (3.65-5.03); Red Cell Distribution Width 17.8 % (13.2-15.2)
[2018-05-25 09:37] LABS: Mean Corpuscular Hemoglobin 24 pg (28-32)
--- NOTE | 2018-05-25 09:38 | Emergency Department Report ---
ED Abdominal Pain HPI - General Chief Complaint: Abdominal Pain Stated Complaint: ABD PAIN Time Seen by Provider: 05/25/18 09:33 Source: patient, EMS Mode of arrival: Wheelchair Limitations: No Limitations - History of Present Illness Initial Comments: This is a very unfortunate 37-year-old female with metastatic ovarian carcinoma. Apparently she was initially with Dr. Arias's group and then transferred to my [facility]. She has been here at this facility and number of times for abdominal pain, treated and released. She is a very poor historian. She complains of abdominal pain again and vomiting. Apparently, she had a liver biopsy done at [facility] 2 days ago. I think she is already been seen by Dr. Kody Arambula. She has not had chemotherapy however. She is telling me that her chemotherapy will begin "next month". She does not report any bleeding, fever, chills, respiratory symptoms. Exactly why the patient would come to this facility after having a liver biopsy 2 days ago at another facility appears quite enigmatic. MD Complaint: abdominal pain -: month(s) Location: RUQ Radiation: none Migration to: no migration Quality: aching Consistency: intermittent Improves With: nothing Worsens With: nothing Associated Symptoms: denies other symptoms - Related Data Home Medications Medication Instructions Recorded Confirmed Last Taken Ibuprofen [Motrin] 600 mg PO Q6H PRN 05/25/18 05/25/18 05/24/18 Allergies Allergy/AdvReac Type Severity Reaction Status Date / Time povidone-iodine Allergy Swelling Verified 10/02/14 13:56 [From Betadine] soap [From Betadine] Allergy Swelling Verified 10/02/14 13:56 ED Review of Systems ROS: Stated complaint: ABD PAIN Other details as noted in HPI Constitutional: denies: chills, fever Eyes: denies: eye pain, eye discharge, vision change ENT: denies: ear pain, throat pain Respiratory: denies: cough, shortness of breath, wheezing Cardiovascular: denies: chest pain, palpitations Endocrine: no symptoms reported Gastrointestinal: abdominal pain, nausea, vomiting. denies: diarrhea Genitourinary: denies: urgency, dysuria, discharge Musculoskeletal: denies: back pain, joint swelling, arthralgia Skin: denies: rash, lesions Neurological: denies: headache, weakness, paresthesias Psychiatric: denies: anxiety, depression Hematological/Lymphatic: denies: easy bleeding, easy bruising ED Past Medical Hx - Past Medical History Previous Medical History?: Yes Hx Hypertension: Yes Hx Congestive Heart Failure: No Hx Diabetes: No Hx Deep Vein Thrombosis: No Hx Renal Disease: No Hx Sickle Cell Disease: No Hx Seizures: No Hx Asthma: No Hx COPD: No Hx HIV: No Additional medical history: mass to uterus that has spread to liver- awaiting biopsy results - Surgical History Past Surgical History?: Yes Additional Surgical History: X 3. hernia repair - Social History Smoking Status: Never Smoker Substance Use Type: Marijuana - Medications Home Medications: Home Medications Medication Instructions Recorded Confirmed Last Taken Type Ibuprofen [Motrin] 600 mg PO Q6H PRN 05/25/18 05/25/18 05/24/18 History ED Physical Exam - General Limitations: Physical Limitation General appearance: alert, in no apparent distress - Head Head exam: Present: atraumatic, normocephalic - Eye Eye exam: Present: normal appearance. Absent: scleral icterus - ENT ENT exam: Present: mucous membranes moist - Neck Neck exam: Present: normal inspection. Absent: tenderness, meningismus - Respiratory Respiratory exam: Present: normal lung sounds bilaterally. Absent: respiratory distress - Cardiovascular Cardiovascular Exam: Present: regular rate, normal rhythm. Absent: systolic murmur, diastolic murmur, rubs, gallop - GI/Abdominal GI/Abdominal exam: Present: soft, distended, tenderness (mild right upper quadrant), normal bowel sounds, organomegaly, mass, other (ascites). Absent: guarding, rebound, rigid - Extremities Exam Extremities exam: Present: normal inspection - Back Exam Back exam: Present: normal inspection - Neurological Exam Neurological exam: Present: alert, oriented X3, CN II-XII intact. Absent: motor sensory deficit - Psychiatric Psychiatric exam: Present: normal affect, normal mood - Skin Skin exam: Present: warm, dry, intact, normal color. Absent: rash ED Course Vital Signs 05/25/18 05/25/18 05/25/18 08:47 11:08 11:15 Temperature 98.6 F Pulse Rate 83 Respiratory 18 Rate Blood Pressure 134/86 161/96 O2 Sat by Pulse 100 100 100 Oximetry 05/25/18 05/25/18 11:30 11:45 Temperature Pulse Rate Respiratory Rate Blood Pressure 136/85 151/98 O2 Sat by Pulse 100 100 Oximetry - Reevaluation(s) Reevaluation #1: The patient was seen by case management. I discussed her situation with Dr. Brewer who was kind to admit the patient for further care 05/25/18 13:58 ED Medical Decision Making - Lab Data Result diagrams: 05/25/18 09:00 05/25/18 09:05 Laboratory Results - last 24 hr 05/25/18 05/25/18 05/25/18 09:00 09:00 09:05 WBC 6.8 RBC 3.43 L Hgb 8.1 L Hct 25.1 L MCV 73 L MCH 24 L MCHC 32 RDW 17.8 H Plt Count 696 H Lymph % (Auto) 17.0 [place] % (Auto) 5.5 Eos % (Auto) 0.5 Baso % (Auto) 0.6 Lymph # 1.2 [place] # 0.4 Eos # 0.0 Baso # 0.0 Seg Neutrophils % 76.4 H Seg Neutrophils # 5.2 Sodium 138 Potassium 3.4 L Chloride 98.4 Carbon Dioxide 27 Anion Gap 16 BUN 12 Creatinine 0.5 L Estimated GFR > 60 BUN/Creatinine Ratio 24 Glucose 111 H Calcium 9.5 Total Bilirubin 0.30 AST 32 ALT 8 Alkaline Phosphatase 86 Total Protein 7.6 Albumin 4.0 Albumin/Globulin Ratio 1.1 Lipase HCG, Qual Negative 05/25/18 09:05 WBC RBC Hgb Hct MCV MCH MCHC RDW Plt Count Lymph % (Auto) [place] % (Auto) Eos % (Auto) Baso % (Auto) Lymph # [place] # Eos # Baso # Seg Neutrophils % Seg Neutrophils # Sodium Potassium Chloride Carbon Dioxide Anion Gap BUN Creatinine Estimated GFR BUN/Creatinine Ratio Glucose Calcium Total Bilirubin AST ALT Alkaline Phosphatase Total Protein Albumin Albumin/Globulin Ratio Lipase 12 L HCG, Qual - Radiology Data Radiology results: report reviewed (CT of the head showed metastatic disease to the liver the lungs minimal pleural fluid and the pelvic mass. CT the head showed no acute intracranial finding.) Critical care attestation.: If time is entered above; I have spent that time in minutes in the direct care of this critically ill patient, excluding procedure time. ED Disposition Clinical Impression: Metastatic carcinoma Abdominal pain Qualifiers: Abdominal location: right upper quadrant Qualified Code(s): R10.11 - Right upper quadrant pain Vomiting Qualifiers: Vomiting type: unspecified Vomiting Intractability: intractable Nausea presence : with nausea Qualified Code(s): R11.2 - Nausea with vomiting, unspecified Anemia Qualifiers: Anemia type: other cause Other causes of anemia: chronic disease, other Qualified Code(s): D63.8 - Anemia in other chronic diseases classified elsewhere Disposition: OP ADMIT IP TO THIS HOSP Is pt being admited?: Yes Does the pt Need Aspirin: No Condition: Stable Instructions: Abdominal Pain (ED) Referrals: PRIMARY CARE, [Primary Care Provider] - 3-5 Days Time of Disposition: 14:00
[2018-05-25] MEDS ORDERED: MORPHINE IV ONE ×2 (09:55→13:42)
[2018-05-25] MEDS ORDERED: ZOFRAN IV ONE ×2 (09:55→13:42)
[2018-05-25] MEDS ORDERED: NACL 0.9% 1000 ML 1,000 ML IV ONE (09:55)
[2018-05-25 10:20] LABS: Bilirubin,Urine NEG (Negative); Blood,Urine NEG (Negative); Color,Urine Amber (Yellow); Mucus,Urine 1+ /HPF
--- NOTE | 2018-05-25 13:03 | Cat Scan Report ---
CT HEAD WITHOUT CONTRAST INDICATION: Altered mental status, ovarian carcinoma. COMPARISON: None similar. FINDINGS: Noncontrast head CT demonstrates normal ventricles and sulci without acute or recent infarct, hemorrhage, mass effect or midline shift. No abnormal extra-axial fluid collections. Posterior fossa structures and basilar cisterns within normal limits. Symmetric eye globes. Clear paranasal sinuses and mastoid air cells. Intact calvarium. Normal overlying scalp soft tissues. CONCLUSION: No acute intracranial CT abnormality, as described. Thank you for the opportunity to participate in this patient's care.
--- NOTE | 2018-05-25 13:15 | Cat Scan Report ---
CT ABDOMEN AND PELVIS WITHOUT CONTRAST INDICATION: Abdominal pain, ovarian carcinoma. COMPARISON: 03/28/2018 CT. FINDINGS: Noncontrast abdomen and pelvis CT performed. LUNG BASES: Minimal left pleural effusion and atelectasis is new as on axial image 29, series 2. Few tiny peripheral nodules at the imaged lung bases measuring up to 2-3 mm as on axial images 1-20, amongst others, suspicious for metastases. Borderline cardiomegaly. ABDOMEN: Please note that sensitivity to detect small visceral lesions is limited due to the absence of intravenous or oral contrast. Small ascites, mildly increased in the imaged upper abdomen. Interval enlargement of hypodense hepatic metastases, now approximately 2.7 cm in the left hepatic lobe anteriorly in the midline on axial image 27, series 2 and another approximately 3.5 cm in the right hepatic lobe, image 40. Grossly unremarkable unenhanced spleen, gallbladder, pancreas, adrenals, aorta, IVC and kidneys. Nonopacified GI tract evaluation limited, though grossly nonobstructive with bowel loops again displaced secondary to extensive mixed solid and cystic mid to lower abdominal and pelvic masses with the largest aggregate measurement of approximately 11 cm AP x 20 cm transverse on axial image 111, series 2. PELVIS: Bilateral tubal ligation clips may again be noted. Few small pelvic phleboliths. Urinary bladder suboptimally distended and assessed. Mild rectal stool. Pre-sacral fat stranding/fluid again noted as on axial image 139. No size significant inguinal lymphadenopathy. Iliac aspect sclerosis along the SI joints again seen, right greater than left. CONCLUSION: 1. Interval progression of metastatic disease in the abdomen and pelvis on this unenhanced exam, as detailed above. 2. Minimal left pleural effusion now noted with tiny bibasilar metastatic lung nodules also suspected, as described. Thank you for the opportunity to participate in this patient's care.
--- NOTE | 2018-05-25 13:59 | History and Physical Report ---
History of Present Illness Date of examination: 05/25/18 Date of admission: 05/25/18 Chief complaint: pain, nausea, vomiting History of present illness: Pt presented to the ER as she has several times c/o nausea, vomiting,and abdominal pain. Pt has a pelvic mass believed to me cancer but diagnosis still has not been confirmed at this time as she is currently being worked up by Dr. Arambula. She also has liver lesions that are suspected to be malignant also. I spoke with Dr. Arambula today regarding this pt and she states her primary has not been clearly identified to be either GI or INSPECTOR RAG SORTING cancer. Pt is s/p colonoscopy, evaluation by her PCP and a liver bx( done 05/22/2018). All final studies are pending. He has seen pt in his office this week. I advised pt that Dr. Arambula or any oncology group branch coordinator shepard comes to this hospital. She is admitted for observation and management of her pain for now. I explained to the pt however, that due to the complexity of her case and limitations of our facility from an oncology standpoint she may have to be transferred to a facility where the oncologist working her up will be better able to manage her condition. Pt states she has been able to manage her pain but she stopped taking the zofran for nausea because it was making her constipated.This is when she started having the n/v unable to tolerate po for the last two days. She came to ER via EMS due to being home alone and not wanting "to pass out w/o some one checking on" her.Since admission she has been tolerating a clear diet and desires to con' t the clear diet. While at the bedside she c/o a buring sensation c/w reflux in mid chest that comes just prior to spitting but she states she does not have emesis. I d/w staring meds for the reflux as well. Pt states she is feeling much better since getting the IVFs and IV nausea medications. Pt seems to be clear about the plan of care regarding the cancer dx and the current work up that is taking place. I spent 20 minutes at beside speaking with pt. All of her questions were addressed and answered. Past History Past Medical History: hypertension (no medicaitons) Past Surgical History: section (times 3), other (btl; hernia repain) INSPECTOR RAG SORTING History: abnormal PAP smear Family/Genetic History: other (sister s/p colon cancer( she is pt triplet sister dx at age 34)) Social history: no significant social history - Obstetrical History : 4 Medications and Allergies Allergies Allergy/AdvReac Type Severity Reaction Status Date / Time povidone-iodine Allergy Swelling Verified 10/02/14 13:56 [From Betadine] soap [From Betadine] Allergy Swelling Verified 10/02/14 13:56 Home Medications Medication Instructions Recorded Confirmed Last Taken Type Ibuprofen [Motrin] 600 mg PO Q6H PRN 05/25/18 05/25/18 05/24/18 History Review of Systems All systems: negative - Vital Signs Vital signs: Vital Signs Temp Pulse Resp BP Pulse Ox 98.6 F 83 18 134/86 100 05/25/18 08:47 05/25/18 08:47 05/25/18 08:47 05/25/18 08:47 05/25/18 08:47 Temp Pulse Resp BP Pulse Ox 98.6 F 83 18 151/98 100 05/25/18 08:47 05/25/18 08:47 05/25/18 08:47 05/25/18 11:45 05/25/18 11:45 - Physical Exam Cardiovascular: Normal S1, Normal S2 Lungs: Positive: Clear to auscultation, Normal air movement Abdomen: Positive: normal appearance, soft, distention, tenderness, mass ( palpated to the unbilicus firms not mobile). Negative: guarding Genitourinary (Female): Positive: other (deferred) Results Result Diagrams: 05/25/18 09:00 05/25/18 09:05 Abnormal lab results 05/25/18 05/25/18 05/25/18 Range/Units 09:00 09:05 09:05 RBC 3.43 L (3.65-5.03) M/mm3 Hgb 8.1 L (10.1-14.3) gm/dl Hct 25.1 L (30.3-42.9) % MCV 73 L (79-97) fl MCH 24 L (28-32) pg RDW 17.8 H (13.2-15.2) % Plt Count 696 H (140-440) K/mm3 Seg Neutrophils % 76.4 H (40.0-70.0) % Potassium 3.4 L (3.6-5.0) mmol/L Creatinine 0.5 L (0.7-1.2) mg/dL Glucose 111 H (65-100) mg/dL Lipase 12 L (13-60) units/L All other labs normal. Assessment and Plan - Patient Problems (1) Abdominal pain Current Visit: Yes Status: Acute Qualifiers: Abdominal location: right upper quadrant Qualified Code(s): R10.11 - Right upper quadrant pain (2) Metastatic carcinoma Current Visit: Yes Status: Acute Plan to address problem: -source is not clear at this time. Pt seeing Dr. Arambula but triplet sister is s/ p colon CA at age 34 so she is also having GI workup that is still pending -s/p bx of liver on 05/22/18-results still pending as per conversation with Dr. Arambula today -findings on CT d/w pt. She is currently w/o any respiratory c/o at this time. -Pt agrees with plan of care. (3) Vomiting Current Visit: Yes Status: Acute Qualifiers: Vomiting type: unspecified Vomiting Intractability: intractable Nausea presence: with nausea Qualified Code(s): R11.2 - Nausea with vomiting, unspecified Plan to address problem: -seems to have reflux at this time -will change to reglan IV from the [facility] as she states is causes constipation. (4) Hypertension Current Visit: Yes Status: Acute Qualifiers: Hypertension type: essential hypertension Qualified Code(s): I10 - Essential (primary) hypertension Plan to address problem: -has h/o but not taking any medications at this time -may be pain related so will con't to closely monitor
[2018-05-25] MEDS ORDERED: TYLENOL PO PRN (18:05)
[2018-05-25] MEDS ORDERED: SODIUM CHLORIDE FLUSH SYRINGE 10 ML IV PRN (18:05)
[2018-05-25] MEDS ORDERED: NORCO 5/325 PO PRN (18:05)
[2018-05-25] MEDS ORDERED: ZOFRAN IV PRN (18:07)
[2018-05-25] MEDS: D5LR 1,000 ML IV SCH (19:37)
[2018-05-25] MEDS ORDERED: REGLAN IV PRN (21:37)
[2018-05-25] MEDS ORDERED: COLACE PO SCH (22:00)
[2018-05-25] MEDS ORDERED: SODIUM CHLORIDE FLUSH SYRINGE 10 ML IV SCH (22:00)
[2018-05-26] MEDS: D5LR 1,000 ML IV SCH ×2 (02:30→09:55)
[2018-05-26] MEDS: MOTRIN PO PRN ×2 (03:41→09:56)
[2018-05-26] MEDS ORDERED: PEPCID IV SCH (07:00)
[2018-05-26 08:59] VITALS: BP 151/95
--- NOTE | 2018-05-26 10:20 | Discharge Summary ---
Providers - Providers Date of Admission: 05/25/18 13:56 Date of discharge: 05/26/18 Attending physician: MARKUS BRUNO 05/25/18 11:49 Consult to Case Management [CONS] Urgent Services Needed at Discharge: Other Notified:: no Primary care physician: SURVEY AND MAPPING TECHNICIAN Hospitalization Condition: Good Hospital course: Uncomplicated Disposition: DC-01 TO HOME OR SELFCARE - Discharge Diagnoses (1) Anemia Status: Chronic Qualifiers: Anemia type: other cause Other causes of anemia: chronic disease, other Qualified Code(s): D63.8 - Anemia in other chronic diseases classified elsewhere (2) Hypertension Status: Chronic Qualifiers: Hypertension type: essential hypertension Qualified Code(s): I10 - Essential (primary) hypertension (3) Vomiting Status: Resolved Qualifiers: Vomiting type: unspecified Vomiting Intractability: intractable Nausea presence: with nausea Qualified Code(s): R11.2 - Nausea with vomiting, unspecified Core Measure Documentation - Palliative Care Palliative Care/ Comfort Measures: Not Applicable - Core Measures Any of the following diagnoses?: none Exam - Constitutional Vitals: Temp Pulse Resp BP Pulse Ox 98.6 F 88 18 151/95 98 05/26/18 08:00 05/26/18 08:00 05/26/18 08:00 05/26/18 08:00 05/26/18 08:00 General appearance: Present: no acute distress Plan Activity: no restrictions Weight Bearing Status: Full Weight Bearing Diet: clear liquids ([id number], ) Follow up with: PRIMARY CARE, [Primary Care Provider] - 3-5 Days Prescriptions: Famotidine [Pepcid] 20 mg PO BID #60 tablet Metoclopramide [Reglan] 10 mg PO Q6HR PRN #60 tab PRN Reason: Nausea
== END 2018-05-26 12:35 | disposition home or self-care (01) | DRG 392 ==
LOC: ED 08:11 → 3A 13:56 → OB 15:20
PROVIDERS: ADMIT Obstetrics & Gynecology; ATTEND Obstetrics & Gynecology
DX: R11.2 Nausea with vomiting, unspecified (principal); C79.9 Secondary malignant neoplasm of unspecified site; C56.9 Malignant neoplasm of unspecified ovary; K59.00 Constipation, unspecified; D63.8 Anemia in other chronic diseases classified elsewhere; I10 Essential (primary) hypertension; R11.10 Vomiting, unspecified; R10.9 Unspecified abdominal pain; F12.90 Cannabis use, unspecified, uncomplicated; Z80.8 Family history of malignant neoplasm of other organs or systems; Z79.899 Other long term (current) drug therapy
CPT/HCPCS: 36415; 70450; 74176; 80053; 81001; 82140; 83690; 84703; 85025; 87040; 87086; 96361; 96374; 96375; 96376; J2270; J2405; J2765; J7030; J7121

== ENCOUNTER 2019-01-13 09:04 | Emergency (ER) | payer MEDICAID ==
[2019-01-13 09:22] VITALS: BP 99/69
[2019-01-13 10:10] LABS: Hematocrit 34.8 % (30.3-42.9); Hemoglobin 11.7 gm/dl (10.1-14.3); Mean Corpuscular HGB Conc 34 % (30-34); Mean Corpuscular Volume 105 fl (79-97); Platelet Count 170 K/mm3 (140-440); Red Blood Count 3.33 M/mm3 (3.65-5.03); Red Cell Distribution Width 16.8 % (13.2-15.2)
[2019-01-13 10:29] LABS: Alanine Aminotransferase 27 units/L (7-56); Albumin 3.5 g/dL (3.9-5); BUN/Creatinine Ratio 25; Blood Urea Nitrogen 20 mg/dL (7-17); Calcium 8.9 mg/dL (8.4-10.2); Hemolysis Index 13
[2019-01-13 12:39] LABS: Basophils % (Manual) 0 % (0.0-1.8); Total Cells Counted 100
[2019-01-13 12:40] LABS: Anisocytosis 1+; Macrocytosis 1+; Platelet Estimate Consistent w Auto
== END 2019-01-13 13:15 ==
LOC: ED 09:04
DX: R10.9 Unspecified abdominal pain (principal); Z53.21 Procedure and treatment not carried out due to patient leaving prior to being seen by health care provider
CPT/HCPCS: 36415; 80053; 83690; 84703; 85007; 85025

== ENCOUNTER 2019-10-01 10:15 | Emergency (ER) | payer MEDICAID, OTHER ==
[2019-10-01 10:24] VITALS: BP 131/89
[2019-10-01 11:23] LABS: Basophils # (Auto) 0.1 K/mm3 (0.0-0.1); Basophils % (Auto) 0.8 % (0.0-1.8); Eosinophils # (Auto) 0.1 K/mm3 (0.0-0.4); Eosinophils % (Auto) 1.1 % (0.0-4.3); Hematocrit 32.8 % (30.3-42.9); Hemoglobin 11.2 gm/dl (10.1-14.3); Lymphocytes # (Auto) 1.4 K/mm3 (1.2-5.4); Lymphocytes % (Auto) 14.4 % (13.4-35.0); Mean Corpuscular HGB Conc 34 % (30-34); Mean Corpuscular Volume 98 fl (79-97); Monocytes # (Auto) 0.6 K/mm3 (0.0-0.8); Monocytes % (Auto) 6.3 % (0.0-7.3); Platelet Count 556 K/mm3 (140-440); Red Blood Count 3.36 M/mm3 (3.65-5.03); Red Cell Distribution Width 16.1 % (13.2-15.2)
[2019-10-01 11:45] LABS: Alanine Aminotransferase 32 units/L (7-56); Albumin 3.9 g/dL (3.9-5); BUN/Creatinine Ratio 21; Blood Urea Nitrogen 17 mg/dL (7-17); Calcium 10.4 mg/dL (8.4-10.2); Hemolysis Index 7
[2019-10-01] MEDS ORDERED: ONDANSETRON 4 MG/2 ML INJ IV ONE ×2 (12:32→14:50)
[2019-10-01] MEDS ORDERED: SODIUM CHLORIDE 0.9% 1000 ML 1,000 ML IV ONE (12:32)
[2019-10-01] MEDS ORDERED: MORPHINE 4 MG/1 ML INJ IV ONE (12:32)
--- NOTE | 2019-10-01 12:45 | Emergency Department Report ---
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 She is currently being treated by oncologist Dr. George at [facility]. She presents today with chief complaint of left upper quadrant abdominal pain with associated nonbloody nonbilious vomiting. She has an ileostomy in the right lower quadrant that has been producing watery stools. She denies any blood in the stool. She denies any bloody emesis or melena. She also reports in the left upper quadrant she has noticed a painful mass that has been becoming larger over the past many weeks. She is currently on oxycodone for pain at home as well as an oral chemotherapy which she cannot read the name of. She reports the pain as a 10 out of 10. She denies any associative chest pain, shortness of breath, fever, chills, night sweats. - Related Data Home Medications Medication Instructions Recorded Confirmed Last Taken Ibuprofen [Motrin] 600 mg PO Q6H PRN 05/25/18 05/25/18 05/24/18 Previous Rx's Medication Instructions Recorded Last Taken Type Famotidine [Pepcid] 20 mg PO BID #60 tablet 05/26/18 Unknown Rx Metoclopramide [Reglan] 10 mg PO Q6HR PRN #60 tab 05/26/18 Unknown Rx Promethazine [Phenergan] 25 mg PO Q6HR PRN #30 tab 10/01/19 Unknown Rx Allergies Allergy/AdvReac Type Severity Reaction Status Date / Time povidone-iodine Allergy Swelling Verified 10/01/19 10:41 [From Betadine] soap [From Betadine] Allergy Swelling Verified 10/01/19 10:41 ED Review of Systems ROS: Stated complaint: STAGE 4/VOMIT/NAUSEA Other details as noted in HPI Comment: All other systems reviewed and negative Constitutional: denies: chills, fever Eyes: denies: eye pain, eye discharge, vision change ENT: denies: ear pain, throat pain Respiratory: denies: cough, shortness of breath, wheezing Cardiovascular: denies: chest pain, palpitations Endocrine: no symptoms reported Gastrointestinal: as per HPI, abdominal pain, nausea, vomiting. denies: diarrhea Genitourinary: denies: urgency, dysuria, discharge Musculoskeletal: denies: back pain, joint swelling, arthralgia Skin: denies: rash, lesions Neurological: denies: headache, weakness, paresthesias Psychiatric: denies: anxiety, depression Hematological/Lymphatic: denies: easy bleeding, easy bruising ED Past Medical Hx - Past Medical History Previous Medical History?: Yes Hx Hypertension: Yes Hx Congestive Heart Failure: No Hx Diabetes: No Hx Deep Vein Thrombosis: No Hx Renal Disease: No Hx Sickle Cell Disease: No Hx Seizures: No Hx Asthma: No Hx COPD: No Hx HIV: No Additional medical history: Stage IV uterine CA - Surgical History Past Surgical History?: Yes Additional Surgical History: X 3. hernia repair - Social History Smoking Status: Never Smoker - Medications Home Medications: Home Medications Medication Instructions Recorded Confirmed Last Taken Type Ibuprofen [Motrin] 600 mg PO Q6H PRN 05/25/18 05/25/18 05/24/18 History Famotidine [Pepcid] 20 mg PO BID #60 tablet 05/26/18 Unknown Rx Metoclopramide [Reglan] 10 mg PO Q6HR PRN #60 tab 05/26/18 Unknown Rx Promethazine [Phenergan] 25 mg PO Q6HR PRN #30 tab 10/01/19 Unknown Rx ED Physical Exam - General Limitations: No Limitations General appearance: alert, in no apparent distress - Head Head exam: Present: atraumatic, normocephalic - Eye Eye exam: Present: normal appearance, PERRL, EOMI Pupils: Present: normal accommodation - ENT ENT exam: Present: normal exam, normal orophraynx, mucous membranes moist - Neck Neck exam: Present: normal inspection, full ROM. Absent: tenderness, meningismus - Respiratory Respiratory exam: Present: normal lung sounds bilaterally. Absent: respiratory distress, wheezes, rales, rhonchi, stridor - Cardiovascular Cardiovascular Exam: Present: regular rate, normal rhythm. Absent: systolic murmur, diastolic murmur, rubs, gallop - GI/Abdominal GI/Abdominal exam: Present: soft, distended (there is general distention to the abdomen with a large mass in the left side of the abdomen with superficial vessels in the surface of the abdomen. ), tenderness (there is tenderness over the left upper quadrant with palpable mass.), guarding, normal bowel sounds, other (there is a ileostomy bag in the right mid lower quadrant with watery stool with no blood) - Extremities Exam Extremities exam: Present: normal inspection - Back Exam Back exam: Present: normal inspection - Neurological Exam Neurological exam: Present: alert, oriented X3 - Psychiatric Psychiatric exam: Present: normal affect, normal mood - Skin Skin exam: Present: warm, dry, intact, normal color. Absent: rash ED Course Vital Signs 10/01/19 10:23 Temperature 97.7 F Pulse Rate 67 Respiratory 16 Rate Blood Pressure 131/89 O2 Sat by Pulse 97 Oximetry - Reevaluation(s) Reevaluation #1: 10/01/19 15:57 Patient was given initially IV morphine and Zofran and reported very little relief. She was then given IV Dilaudid and reported she felt much better. CT showed extensive metastatic disease. Labs are relatively normal. Patient felt much better and wanted to go home. She has a follow-up appointment with her oncologist in 2 days which I recommend she keep. She was instructed to return to the emergency department with any change or worsening symptoms. ED Medical Decision Making - Lab Data Result diagrams: 10/01/19 11:05 10/01/19 11:05 Lab Results 10/01/19 10/01/19 10/01/19 Range/Units 11:05 11:05 11:05 WBC 9.9 (4.5-11.0) K/mm3 RBC 3.36 L (3.65-5.03) M/mm3 Hgb 11.2 (10.1-14.3) gm/dl Hct 32.8 (30.3-42.9) % MCV 98 H (79-97) fl MCH 34 H (28-32) pg MCHC 34 (30-34) % RDW 16.1 H (13.2-15.2) % Plt Count 556 H (140-440) K/mm3 Lymph % (Auto) 14.4 (13.4-35.0) % Coke % (Auto) 6.3 (0.0-7.3) % Eos % (Auto) 1.1 (0.0-4.3) % Baso % (Auto) 0.8 (0.0-1.8) % Lymph # 1.4 (1.2-5.4) K/mm3 Coke # 0.6 (0.0-0.8) K/mm3 Eos # 0.1 (0.0-0.4) K/mm3 Baso # 0.1 (0.0-0.1) K/mm3 Seg Neutrophils % 77.4 H (40.0-70.0) % Seg Neutrophils # 7.7 (1.8-7.7) K/mm3 Sodium 131 L (137-145) mmol/L Potassium 4.7 (3.6-5.0) mmol/L Chloride 95.4 L (98-107) mmol/L Carbon Dioxide 19 L (22-30) mmol/L Anion Gap 21 mmol/L BUN 17 (7-17) mg/dL Creatinine 0.8 (0.7-1.2) mg/dL Estimated GFR > 60 ml/min BUN/Creatinine Ratio 21 % Glucose 124 H (65-100) mg/dL Calcium 10.4 H (8.4-10.2) mg/dL Total Bilirubin 0.60 (0.1-1.2) mg/dL AST 94 H (5-40) units/L ALT 32 (7-56) units/L Alkaline Phosphatase 393 H (35-129) units/L Total Protein 9.4 H (6.3-8.2) g/dL Albumin 3.9 (3.9-5) g/dL Albumin/Globulin Ratio 0.7 % Lipase 12 L (13-60) units/L HCG, Qual Negative (Negative) Urine Color (Yellow) Urine Turbidity (Clear) Urine pH (5.0-7.0) Ur Specific [place] (1.003-1.030) Urine Protein (Negative) mg/dL Urine Glucose (UA) (Negative) mg/dL Urine Ketones (Negative) mg/dL Urine Blood (Negative) Urine Nitrite (Negative) Urine Bilirubin (Negative) Urine Ictotest (Negative) Urine Urobilinogen (<2.0) mg/dL Ur Leukocyte Esterase (Negative) Urine WBC (Auto) (0.0-6.0) /HPF Urine RBC (Auto) (0.0-6.0) /HPF U Epithel Cells (Auto) (0-13.0) /HPF Urine Mucus /HPF 10/01/19 Range/Units Unknown WBC (4.5-11.0) K/mm3 RBC (3.65-5.03) M/mm3 Hgb (10.1-14.3) gm/dl Hct (30.3-42.9) % MCV (79-97) fl MCH (28-32) pg MCHC (30-34) % RDW (13.2-15.2) % Plt Count (140-440) K/mm3 Lymph % (Auto) (13.4-35.0) % Coke % (Auto) (0.0-7.3) % Eos % (Auto) (0.0-4.3) % Baso % (Auto) (0.0-1.8) % Lymph # (1.2-5.4) K/mm3 Coke # (0.0-0.8) K/mm3 Eos # (0.0-0.4) K/mm3 Baso # (0.0-0.1) K/mm3 Seg Neutrophils % (40.0-70.0) % Seg Neutrophils # (1.8-7.7) K/mm3 Sodium (137-145) mmol/L Potassium (3.6-5.0) mmol/L Chloride (98-107) mmol/L Carbon Dioxide (22-30) mmol/L Anion Gap mmol/L BUN (7-17) mg/dL Creatinine (0.7-1.2) mg/dL Estimated GFR ml/min BUN/Creatinine Ratio % Glucose (65-100) mg/dL Calcium (8.4-10.2) mg/dL Total Bilirubin (0.1-1.2) mg/dL AST (5-40) units/L ALT (7-56) units/L Alkaline Phosphatase (35-129) units/L Total Protein (6.3-8.2) g/dL Albumin (3.9-5) g/dL Albumin/Globulin Ratio % Lipase (13-60) units/L HCG, Qual (Negative) Urine Color [place] (Yellow) Urine Turbidity Slightly-cloudy (Clear) Urine pH 5.0 (5.0-7.0) Ur Specific [place] 1.038 H (1.003-1.030) Urine Protein 30 mg/dl (Negative) mg/dL Urine Glucose (UA) Neg (Negative) mg/dL Urine Ketones Neg (Negative) mg/dL Urine Blood Neg (Negative) Urine Nitrite Neg (Negative) Urine Bilirubin Sm (Negative) Urine Ictotest Negative (Negative) Urine Urobilinogen < 2.0 (<2.0) mg/dL Ur Leukocyte Esterase Neg (Negative) Urine WBC (Auto) 5.0 (0.0-6.0) /HPF Urine RBC (Auto) 5.0 (0.0-6.0) /HPF U Epithel Cells (Auto) 20.0 H (0-13.0) /HPF Urine Mucus 2+ /HPF - Radiology Data Radiology results: report reviewed Cat Scan Report Signed Patient: JASON BALDERAS MR# : [id number] : 1980 Acct:[id number] Age/Sex: 38 / F ADM Date: 10/01/19 Loc: ED Attending Dr: Ordering Physician: CODY GUZMAN Date of Service: 10/01/19 Procedure(s): CT abdomen pelvis w con Accession Number(s): [id number] cc: CODY GUZMAN CT ABDOMEN AND PELVIS WITH CONTRAST HISTORY: abdominal pain, hx of stage IV colorectal cancer. COMPARISON: CT abdomen pelvis report dated 05/25/2018. The images are not available. TECHNIQUE: Helical CT images of the abdomen and pelvis were obtained following administration of intravenous contrast. Sagittal and coronal reformatted images were reviewed. All CT scans at this [facility] are performed using CT dose reduction for ALARA by means of automated exposure control. CONTRAST: 100 ml of intravenous contrast administered. FINDINGS: Abdomen/pelvis: The liver is enlarged with numerous hypodense liver masses consistent with metastatic disease. The largest mass measures 12.0 x 7.1 cm in axial plane in the left hepatic lobe. The biliary system, pancreas, spleen, kidneys and adrenal glands remain unremarkable. A very large heterogeneous mesenteric mass is identified in the right abdomen measuring up to 15 x 13 cm in axial plane. A similar appearing large heterogeneous mass in the left abdomen measures 12.4 x 9.0 cm. These masses displace bowel loops medially and the uterus anteriorly. These may represent large ovarian masses. Bilateral tubal ligation clips are noted along the margins of these masses inferiorly. The bladder is partially empty but unremarkable. Lungs/bones: There are numerous tiny pulmonary nodules at both lung bases measuring less than 5 mm. No infiltrate or pleural effusion. Normal heart size. The bony structures are intact. No suspicious bony lesions are detected. IMPRESSION: Extensive metastatic disease throughout the liver, lung bases and mesentery as described above. Significant progression of disease is suspected since the CT abdomen pelvis without contrast report dated 05/25/2018. No acute inflammatory process is appreciated. Signer Name: Donal Newsome Jr, MD Signed: 10/01/2019 3:15 PM Workstation Name: [id number] Transcribed By: TTR Dictated By: DONAL NEWSOME JR, MD Electronically Authenticated By: DONAL NEWSOME JR, MD Signed Date/Time: 10/01/19 7705 - Medical Decision Making Patient presented to the ER with late stage metastatic uterine cancer to the liver and bowel with a chief complaint of vomiting and pain. Patient spoke with her oncologist who recommended she come to the ER. She was initially given IV morphine and Zofran and reported only minimal relief. I then gave him IV Dilaudid and she felt much better. I offered to bring her to the hospital for continued IV hydration, antibiotics and IV pain medication however she politely declined saying she felt like she could go home with oral medications. I think this is reasonable due to the workup be relatively benign but did educate her if she is developing changing worsening symptoms she should return the emergency Department immediately. She verbalized understanding of the diagnosis, treatment plan follow-up instructions and all of her questions were answered. - Differential Diagnosis small bowel obstruction, appendicitis, cholecystitis Critical care attestation.: If time is entered above; I have spent that time in minutes in the direct care of this critically ill patient, excluding procedure time. ED Disposition Clinical Impression: Pain, abdominal, nonspecific, Pain of metastatic malignancy Disposition: DC-01 TO HOME OR SELFCARE Is pt being admited?: No Condition: Stable Instructions: Liver Cancer (ED) Prescriptions: Promethazine [Phenergan] 25 mg PO Q6HR PRN #30 tab PRN Reason: Nausea Referrals: BOB GEORGE MD [Referring] - 3-5 Days
[2019-10-01 13:49] LABS: Bilirubin,Urine SM (Negative); Blood,Urine NEG (Negative); Color,Urine Amber (Yellow); Mucus,Urine 2+ /HPF; Urobilinogen,Urine < 2.0 mg/dL (<2.0)
[2019-10-01 14:42] LABS: Ictotest,Urine Negative (Negative)
[2019-10-01] MEDS ORDERED: HYDROmorphone 1 MG/1 ML INJ IV ONE (14:50)
--- NOTE | 2019-10-01 15:20 | Cat Scan Report ---
CT ABDOMEN AND PELVIS WITH CONTRAST HISTORY: abdominal pain, hx of stage IV colorectal cancer. COMPARISON: CT abdomen pelvis report dated 05/25/2018. The images are not available. TECHNIQUE: Helical CT images of the abdomen and pelvis were obtained following administration of intr avenous contrast. Sagittal and coronal reformatted images were reviewed. All CT scans at this [facility] are performed using CT dose reduction for ALARA by means of automated exposure control. CONTRAST: 100 ml of intravenous contrast administered. FINDINGS: Abdomen/pelvis: The liver is enlarged with numerous hypodense liver masses consistent with metastati c disease. The largest mass measures 12.0 x 7.1 cm in axial plane in the left hepatic lobe. The bilia ry system, pancreas, spleen, kidneys and adrenal glands remain unremarkable. A very large heterogeneous mesenteric mass is identified in the right abdomen measuring up to 15 x 13 cm in axial plane. A similar appearing large heterogeneous mass in the left abdomen measures 12.4 x 9.0 cm. These masses displace bowel loops medially and the uterus anteriorly. These may represent lar ge ovarian masses. Bilateral tubal ligation clips are noted along the margins of these masses inferio rly. The bladder is partially empty but unremarkable. Lungs/bones: There are numerous tiny pulmonary nodules at both lung bases measuring less than 5 mm. No infiltrate or pleural effusion. Normal heart size. The bony structures are intact. No suspicious b april lesions are detected. IMPRESSION: Extensive metastatic disease throughout the liver, lung bases and mesentery as described above. Signi ficant progression of disease is suspected since the CT abdomen pelvis without contrast report dated 05/25/2018. No acute inflammatory process is appreciated. Signer Name: Donal Newsome Jr, MD Signed: 10/01/2019 3:15 PM Workstation Name: [id number]
== END 2019-10-01 16:01 | disposition home or self-care (01) ==
LOC: ED 10:15
DX: R10.12 Left upper quadrant pain (principal); R11.2 Nausea with vomiting, unspecified; I10 Essential (primary) hypertension; Z85.42 Personal history of malignant neoplasm of other parts of uterus; Z79.899 Other long term (current) drug therapy; Z88.8 Allergy status to other drugs, medicaments and biological substances
CPT/HCPCS: 36415; 74177; 80053; 81001; 83690; 84703; 85025; 96361; 96374; 96375; 96376; 99284; J1170; J2270; J2405; J7030; Q9967